=== PATIENT | female | born 1965 | race Caucasian/White ===

== ENCOUNTER → 2023-09-15 | Outpatient (CLI) | payer BC ==
--- NOTE | 2023-09-17 14:27 | MR ---
EXAMINATION TYPE: MR knee RT wo con DATE OF EXAM: 09/15/2023 COMPARISON: None HISTORY: Rt knee outer and kneecap pain and swelling TECHNIQUE: Multiplanar, multisequence imaging of the right knee is performed without IV contrast. FINDINGS: There is no bone contusion or fracture. There is a small pleural effusion. Cruciate and collateral ligaments are intact. There is a vertical tear of the body of the medial meniscus. The lateral masses is intact. 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 There is abnormal signal intensi ty within the patellar cartilage but there is fissuring of the cartilage and there is a small degree of subchondral cyst formation. Similar changes are seen in the cartilage and subchondral bone in the anterior medial femoral condyle . There is a tiny Martin's cyst. There is mild osteoarthritis of the medial lateral compartment the knee where there is mild cartilagi nous thinning and minimal hypertrophic spurring at the margins. IMPRESSION: 1. 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 2. Mild osteoarthritic change in the medial and lateral compartments. 3. Small joint effusion and tiny Martin's cyst. 4. Vertical tear in the lateral aspect of the body of the medial meniscus. 5. No ligamentous injury.
== END | disposition home or self-care (01) ==
LOC: RADMRIMAIN 09-14 08:20
PROVIDERS: ATTEND Family Medicine
DX: M17.11 Unilateral primary osteoarthritis, right knee (principal); M22.41 Chondromalacia patellae, right knee; M25.461 Effusion, right knee; M71.21 Synovial cyst of popliteal space [Baker], right knee; M23.331 Other meniscus derangements, other medial meniscus, right knee